=== PATIENT | male | born 1965 ===

== ENCOUNTER 2016-08-05 19:48 | Emergency (ER) | payer MEDICAID ==
[2016-08-05 20:54] VITALS: BP 111/68; PULSE 76; RESP 20; TEMP 98.1; O2SAT 95
--- NOTE | 2016-08-05 21:14 | C.PDOC ---
History Of Present Illness A 51 y/o male c/o a laceration to the anterior aspect of the right thigh that occurred today. 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 Pt denies numbness, weakness or any other complaints. Time Seen by Provider: 08/05/16 20:58 Chief Complaint (Nursing): Abnormal Skin Integrity History Per: Patient History/Exam Limitations: no limitations Onset/Duration Of Symptoms: Hrs Current Symptoms Are (Timing): Still Present Location Of Injury: Right: Thigh (Laceration), Anterior: Thigh Quality Of Symptoms: Painful Severity: Mild Recent travel outside of the [place]: No Additional History Per: Patient Past Medical History Reviewed: Historical Data, Nursing Documentation, Vital Signs Vital Signs: Last Vital Signs Temp 98.1 F 08/05/16 20:52 Pulse 76 08/05/16 20:52 Resp 20 08/05/16 21:55 BP 111/68 08/05/16 20:52 Pulse Ox 95 08/06/16 03:42 Family History: States: Unknown Family Hx - Social History Hx Alcohol Use: No Hx Substance Use: No Review Of Systems Constitutional: Negative for: Fever, Chills Musculoskeletal: Positive for: Leg Pain (Laceration to the right thigh) Neurological: Negative for: Weakness, Numbness Physical Exam - Physical Exam Appears: Non-toxic, No Acute Distress Skin: Warm, Dry Head: Atraumatic, Normacephalic Extremity: Normal ROM, No Pedal Edema, No Calf Tenderness, Capillary Refill (< 2secs), Other (1cm superficial laceration to the right anterior aspect of the thigh. No active bleeding.) Neurological/Psych: Oriented x3, Normal Speech, Normal Cognition, Normal Motor, Normal Sensation, Other (No focal deficit) Gait: Steady ED Course And Treatment O2 Sat by Pulse Oximetry: 95 (RA) Pulse Ox Interpretation: Normal Progress Note: Impression: 51 y/o male here for a laceration to the anterior aspect of the right thigh. Plans: Wound cleansed, laceration repair. Immediately prior to procedure a "time out" was called to verify the correct patient, procedure and site. Procedure: Wound was anesthetized, cleansed thoroughly, NS irrigation, and explored: No foreign body or deep structure involvement was detected. Entire laceration closed with skin glue and 2 steri strips were applied to the affected area.Patients condition remained stable throughout Emergency Department evaluation with no evidence of neurologic instability. There is always a risk of undetected foreign body nerve or tendon injury, therefore the importance of close follow-up care was stressed. Pt is in no acute distress with no active bleeding noted. Patient was advised to follow up with PMD within 1-2 days for a follow up. Laceration - Laceration Repair The anterior aspect of the right thigh Wound Length (In cm): 1 Description Of Wound: Linear Wound Cleansed With: Sterile Saline Wound Examination: Irrigated With Saline, No FB With Wound Exploration, No Tendon Injury With Wound Exploration Wound Closure: Steri Strips (2), Skin Glue Wound Complexity: Simple (Pt tolerated procedure well) Disposition - Disposition Disposition: HOME/ ROUTINE Disposition Time: 21:46 Condition: STABLE Additional Instructions: Keep wound dry for 48 hrs Follow up with PMD Return to ER iif worse Instructions: Skin Adhesive Care (ED), Steristrips (ED) - Clinical Impression Clinical Impression: Laceration of thigh, right - Scribe Statement The provider has reviewed the documentation as recorded by the Scribjesse martínez All medical record entries made by the Jeanibjesse were at my direction and personally dictated by me. I have reviewed the chart and agree that the record accurately reflects my personal performance of the history, physical exam, medical decision making, and the department course for this patient. I have also personally directed, reviewed, and agree with the discharge instructions and disposition.
== END 2016-08-05 21:55 | disposition home or self-care (01) ==
LOC: C.ER 19:48
DX: S71.111A Laceration without foreign body, right thigh, initial encounter (principal); W27.8XXA Contact with other nonpowered hand tool, initial encounter; Y93.89 Activity, other specified; Y92.9 Unspecified place or not applicable